=== PATIENT | male | born 1985 | race Two or more races ===

== ENCOUNTER 2024-03-03 12:49 | Emergency (ER) | payer OTHER ==
[~2024-03-03] VITALS: Ht 185.4 cm; Wt 204.5 kg
[2024-03-03] MEDS ORDERED: SODIUM CHLORIDE 0.9% 500 ML IVB ONE (13:15)
--- NOTE | 2024-03-03 13:23 | ED.PDOC ---
History of Present Illness HPI Comments A 38 year old male presents to the ED with the chief complaint of alcohol abuse onset 4 days. Patient states he has a problem with alcohol and is here today because he wants to stop. Patient states he has been drinking ETOH for the past 4 days and began experiencing abdominal pain, nausea, vomiting today and his last drink was about 2 hours ago. 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 He has a past medical history of HTN, DM, HLD. No other symptoms or modifying factors present at this time. Chief Complaint: ETOH Time Seen by MD: 13:05 Reviewed Notes: Nurses Notes, Rod Tape Operator Notes, Medications, Allergies Allergies: Coded Allergies: NO KNOWN ALLERGIES (Unverified , 03/03/24) Information Source: Patient Mode of Arrival: Ambulatory Severity: Moderate Timing: Days Duration: Since onset Prehospital treatment: None Past Medical History PAST MEDICAL HISTORY: DM, High Lipids, HTN Surgical History: Denies all surgeries Family History Family History: Reviewed,noncontributory to illness, No family hx of Cancer, No family hx of DM, No family hx of Heart megan, No family hx of HTN, No family hx ofKidney megan, No family hx of Liver megan, No family hx of Lung megan, No family hx of Stroke Social History Smoker: Cigar Alcohol: Heavy Drugs: Marijuana Constitutional: denies: chills, diaphoresis, fatigue, fever, malaise, sweats, weakness, others EENTM: denies: blurred vision, double vision, ear bleeding, ear discharge, ear drainage, ear pain, ear ringing, eye pain, eye redness, hearing loss, mouth pain , mouth swelling, nasal discharge, nose bleeding, nose congestion, nose pain, photophobia, tearing, throat pain, throat swelling, voice changes, others Respiratory: denies: cough, hemoptysis, orthopnea, SOB at rest, shortness of breath, SOB with excertion, stridor, wheezing, others Cardiovascular: denies: chest pain, dizzy spells, diaphoresis, Dyspnea on exertion, edema, irregular heart beat, left arm pain, lightheadedness, palpitations, PND, syncope, others Gastrointestinal: reports: abdominal pain, nausea, vomiting; denies: abdomen distended, blood streaked bowels, constipated, diarrhea, dysphagia, difficulty swallowing, hematemesis, melena, poor appetite, poor fluid intake, rectal bleeding, rectal pain, others Genitourinary: denies: burning, dysuria, flank pain, frequency, hematuria, incontinence, penile discharge, penile sore, pain, testicle pain, testicle swelling, urgency, others Neurological: denies: dizziness, fainting, headache, left sided numbness, left sided weakness, numbness, paresthesia, pre-existing deficit, right sided numbness, right sided weakness, seizure, speech problems, tingling, tremors, weakness, others Musculoskeletal: denies: back pain, gout, joint pain, joint swelling, muscle pain, muscle stiffness, neck pain, others Integumetry: denies: bruises, change in color, change in hair/nails, dryness, laceration, lesions, lumps, rash, wounds, others Allergic/Immunocompromised: denies: Difficulty Healing, Frequent Infections, Hives, Itching, others Hematologic/Lymphatic: denies: anemia, blood clots, easy bleeding, easy bruising, swollen glands, others Endocrine: denies: excessive hunger, excessive sweating, excessive thirst, excessive urination, flushing, intolerance to cold, intolerance to heat, unexplained weight gain, unexplained weight loss, others Psychiatric: denies: anxiety, bipolar disorder, depression, hopeless, panic disorder, schizophrenia, sleepless, suicidal, others All Other Systems: Reviewed and Negative Physical Exam General Appearance: Moderate Distress, Obese HEENT: Normal ENT Inspection, Pharynx Normal, TMs Normal Neck: Full Range of Motion, Non-Tender, Normal, Normal Inspection Respiratory: Chest Non-Tender, Lungs Clear, No Accessory Muscle Use, No Respiratory Distress, Normal Breath Sounds Cardiovascular: No Edema, No JVD, No Murmur, No Gallop, Normal Peripheral Pulses, Regular Rate/Rhythm Breast Exam: Deferred Gastrointestinal: No Organomegaly, No Pulsatile Mass, Normal Bowel Sounds, RUQ, Soft, Tenderness Genitalia: Deferred Pelvic: Deferred Rectal: Deferred Extremities: No calf tenderness, Normal capillary refill, Normal inspection, Normal range of motion, Non-tender, No pedal edema Musculoskeletal : Apperance: Normal Neurologic: Alert, flat locker II-XII nml as Tested, No Motor Deficits, Normal Affect, Normal Mood, No Sensory Deficits Cerebellar Function: Normal Reflexes: Normal Skin: Dry, Normal Color, Warm Lymphatic: No Adenopathy Was a procedure done? Was a procedure done?: No Differential Dx Considerations may include: Cholecystitis, gastritis, pancreatitis X-Ray, Labs, Meds, VS Vital Signs Date Time Temp Pulse Resp B/P (MAP) Pulse Ox O2 Delivery O2 Flow Rate FiO2 03/03/24 18:42 106 18 166/91 (116) 94 03/03/24 17:08 98.3 101 20 152/99 (116) 96 98.3 03/03/24 15:26 161/112 03/03/24 15:17 161/112 03/03/24 14:20 166/111 03/03/24 14:07 108 16 95 Room Air* 0 21 03/03/24 14:07 98.8 108 16 166/111 (129) 95 98.8 03/03/24 13:04 99.1 119 18 156/120 (132) 96 Lab Test 03/03/24 13:55 03/03/24 12:59 Range/Units White Blood Count 5.2 4.4-10.8 10^3/uL Red Blood Count 5.92 H 4.5-5.90 10^6/uL Hemoglobin 15.1 13.5-17.5 g/dL Hematocrit 45.2 41.0-53.0 % Mean Corpuscular Volume 76.4 L 80.0-100.0 fL Mean Corpuscular Hemoglobin 25.6 L 28.0-32.0 pg Mean Corpuscular Hemoglobin Concent 33.5 32.0-36.0 g/dL Red Cell Distribution Width 15.3 H 11.8-14.3 % Platelet Count 282 140-450 10^3/uL Mean Platelet Volume 7.9 6.9-10.8 fL Neutrophils (%) (Auto) 60.1 37.0-80.0 % Lymphocytes (%) (Auto) 32.9 10.0-50.0 % Monocytes (%) (Auto) 4.6 0.0-12.0 % Eosinophils (%) (Auto) 1.0 0.0-7.0 % Basophils (%) (Auto) 1.4 0.0-2.0 % Neutrophils # (Auto) 3.1 1.6-8.6 10 ^3/uL Lymphocytes # (Auto) 1.7 0.4-5.4 10 ^3/uL Monocytes # (Auto) 0.2 0-1.3 10 ^3/uL Eosinophils # (Auto) 0.1 0-0.8 10 ^3/uL Basophils # (Auto) 0.1 0-0.2 10 ^3/uL Nucleated Red Blood Cells 0.0 % Sodium Level 140 136-145 mmol/L Potassium Level 3.7 3.5-5.1 mmol/L Chloride Level 101 98-107 mmol/L Carbon Dioxide Level 27 20-31 mmol/L Anion Gap 12 5-15 Blood Urea Nitrogen 12 9-23 mg/dL Creatinine 1.49 H 0.700-1.30 mg/dL Glomerular Filtration Rate Calc 62 >90 mL/min BUN/Creatinine Ratio 8.1 L 10.0-20.0 Serum Glucose 138 H 74-106 mg/dL Calcium Level 9.3 8.7-10.4 mg/dL Total Bilirubin 0.6 0.2-1.0 mg/dL Aspartate Amino Transferase (AST) 54 H 13-40 U/L Alanine Aminotransferase (ALT) 51 H 7-40 U/L Alkaline Phosphatase 95 46-116 U/L Total Protein 7.5 5.7-8.2 g/dL Albumin 4.5 3.2-4.8 g/dL Lipase 53 12-53 U/L Plasma/Serum Blood Alcohol 305.4 H <10 mg/dL POC Glucose 146 H 70-106 mg/dl Current Medications Medications (Trade) Dose Ordered Sig/Nanette Route Start Time Stop Time Status Last Admin Sodium Chloride 1,000 ml @ 1,000 mls/hr Q1H ONCE IV 03/03/24 14:15 03/03/24 15:14 DC 03/03/24 14:35 Clonidine HCl (Catapres Tablet) 0.2 mg ONCE ONCE PO 03/03/24 14:15 03/03/24 14:16 DC 03/03/24 14:20 Ondansetron HCl (Zofran) 4 mg ONCE ONCE IV 03/03/24 14:30 03/03/24 14:32 DC 03/03/24 14:37 Hydralazine HCl (Apresoline Injection) 15 mg ONCE ONCE IV 03/03/24 15:30 03/03/24 15:31 DC 03/03/24 15:26 PROCEDURE(s): GBUS - GALLBLADDER IMPRESSION: Gallstones and gallbladder sludge are noted . distended gallbladder. Acute cholecystitis Hep-Lock was established The patient was given 1 L bolus of normal saline The alcohol level is 305 The patient was given Catapres 0.2 mg by mouth for the elevated blood pressure. The patient was having some nausea so was given Zofran 4 mg IV push The patient remained somewhat hypertensive so the patient was then given hydral azine 15 mg IV push The patient's CBC is within normal limits The chemistry panel shows a creatinine of 1.49 The patient was being transferred to [facility]. We did speak to the [facility] physician The patient is authorization #[id number] at this time the patient will be transferred Images Reviewed?: Images reviewed and evaluated by me Time of 1ST Reevaluation: 13:35 Reevaluation 1ST: Unchanged Patient Education/Counseling: Diagnosis, Treatment, Prognosis Family Education/Counseling: No Family Present Departure 1 Departure Time of Disposition: 20:53 Impression: Primary Impression: Alcohol abuse Additional Impressions: Intractable abdominal pain Acute cholecystitis Disposition: 51 HOSPICE/MEDICAL FACILITY Condition: Fair Critical Care Note Critical Care Time?: No Stability Stability form required: Yes Stable for transfer: Intended for transfer, To designated facility Heart Score Heart Score: Heart Score Response (Comments) Value History N/A 0 EKG N/A 0 Age N/A 0 Risk Factors N/A 0 Troponin N/A 0 Total 0 I personally scribed for DONALD ORTIZ MD ([email or web address]) on 03/03/24 at 13:23. Elect ronically submitted by Angie Castillo ([email or web address]). I personally scribed for DONALD ORTIZ MD ([email or web address]) on 03/03/24 at 14:36. Electronically submitted by Angie Castillo ([email or web address]). DONALD ORTIZ MD Mar 03, 2024 13:23
[2024-03-03 14:07] VITALS: PULSE 108; RESP 16; O2SAT 95
[2024-03-03 14:08] LABS: Eosinophils # (auto) 0.1 10 ^3/uL (0-0.8); Lymphocytes # (auto) 1.7 10 ^3/uL (0.4-5.4); Monocytes # (auto) 0.2 10 ^3/uL (0-1.3); Neutrophils # (auto) 3.1 10 ^3/uL (1.6-8.6)
[2024-03-03 14:10] LABS: Basophils # (auto) 0.1 10 ^3/uL (0-0.2); Basophils % (auto) 1.4 % (0.0-2.0); Hematocrit 45.2 % (41.0-53.0); Hemoglobin 15.1 g/dL (13.5-17.5); Lymphocytes % (auto) 32.9 % (10.0-50.0); Mean Corpuscular Hemoglobin 25.6 pg (28.0-32.0); Mean Corpuscular Hgb Conc. 33.5 g/dL (32.0-36.0); Mean Corpuscular Volume 76.4 fL (80.0-100.0); Monocytes % (auto) 4.6 % (0.0-12.0); Neutrophils % (auto) 60.1 % (37.0-80.0); Platelet Count (auto) 282 10^3/uL (140-450); Red Blood Cells 5.92 10^6/uL (4.5-5.90); Red Cell Distribution Width 15.3 % (11.8-14.3); White Blood Cell 5.2 10^3/uL (4.4-10.8)
[2024-03-03] MEDS: cloNIDine HCL 0.1 MG TAB PO ONE (14:20)
--- NOTE | 2024-03-03 14:23 | DVH ---
INDICATION: Pain. TECHNIQUE: Multiple real-time sonographic images of the abdomen were obtained. COMPARISON: None FINDINGS: The liver is heterogenous in echogenicity. The liver measures 21cm. No intrahepatic biliar y ductal dilatation is noted. The gallbladder wall measures 2 cm and is unremarkable. Gallstones/Gallbladder sludge. The common d uct measures CBD not seen. The right kidney measures 10 cm. No hydronephrosis. The pancreas is not well visualized due to obscuration from bowel gas. The visualized portions of the IVC and aorta are grossly unremarkable. IMPRESSION: Gallstones and gallbladder sludge are noted . distended gallbladder. Acute cholecystitis
[2024-03-03 14:29] LABS: Alanine Aminotransferase 51 U/L (7-40); Albumin 4.5 g/dL (3.2-4.8); Alkaline Phosphatase 95 U/L (46-116); Anion Gap 12 (5-15); Aspartate Aminotransferase 54 U/L (13-40); BUN/Creatinine Ratio 8.1 (10.0-20.0); Bilirubin, Total 0.6 mg/dL (0.2-1.0); Blood Urea Nitrogen 12 mg/dL (9-23); Calcium 9.3 mg/dL (8.7-10.4); Carbon Dioxide 27 mmol/L (20-31); Chloride 101 mmol/L (98-107); Glucose 138 mg/dL (74-106); Potassium 3.7 mmol/L (3.5-5.1); Sodium 140 mmol/L (136-145); Total Protein 7.5 g/dL (5.7-8.2)
[2024-03-03] MEDS: SODIUM CHLORIDE 0.9% 1,000 ML IV ONE (14:35)
[2024-03-03 14:36] LABS: Blood Alcohol 305.4 mg/dL (<10)
[2024-03-03] MEDS: ONDANSETRON HCL 4 MG/2 ML VIAL IV ONE (14:37)
[2024-03-03 14:48] LABS: Lipase 53 U/L (12-53)
[2024-03-03] MEDS: hydrALAZINE HCL 20 MG/ML VL IV ONE (15:26)
[2024-03-03] MEDS: IOHEXOL 350 MG/ML 100ML IJ ONE (19:48)
[2024-03-03 21:19] VITALS: TEMP 98.1
[2024-03-04] MEDS: hydrALAZINE HCL 20 MG/ML VL IV ONE (00:27)
[2024-03-04] MEDS: metroNIDAZOLE 500MG/100ML 100 ML IV ONE (00:46)
[2024-03-04] MEDS: ceFAZolin 2 GM/D5W50ml 50 ML IV ONE (00:56)
[2024-03-04] MEDS: ONDANSETRON HCL 4 MG/2 ML VIAL IV ONE (02:21)
[2024-03-04] MEDS: LORazepam 2MG/ML-1ML VIAL IV ONE (02:22)
[2024-03-04 02:40] VITALS: BP 135/75; PULSE 112; RESP 15; O2SAT 96
== END 2024-03-04 00:43 | disposition short-term general hospital (02) ==
LOC: ER 12:49
DX: F10.10 Alcohol abuse, uncomplicated (principal); R10.2 Pelvic and perineal pain; K80.00 Calculus of gallbladder with acute cholecystitis without obstruction; I10 Essential (primary) hypertension; E11.9 Type 2 diabetes mellitus without complications; E78.5 Hyperlipidemia, unspecified; F17.290 Nicotine dependence, other tobacco product, uncomplicated
CPT/HCPCS: 36415; 76705; 80053; 80320; 82962; 83690; 85025; 96361; 96365; 96368; 96375; 96376; 99285; J0360; J0690; J2060; J2405; J3490